=== PATIENT | female | born 1990 | race Caucasian/White ===

== ENCOUNTER 2020-08-06 02:33 | Inpatient (IN) | payer BC, SELFPAY ==
[2020-08-06] VITALS (15 sets, daily range): BP systolic 135–184; BP diastolic 78–110; PULSE 20–90; RESP 12–88; TEMP 36.2–37.1; O2SAT 93–99; BMI 44.2
[2020-08-06] MEDS: 0.9 % Sodium Chloride 1,000 ML 1000 ML IV (03:38)
[2020-08-06 03:39] LABS: Basophils Absolute Auto 0.1 X10*3/uL (0.0-0.2); Basophils Percent Auto 0.5 % (0-2); Eosinophils Absolute Auto 0.1 X10*3/uL (0.0-0.4); Eosinophils Percent Auto 0.9 % (0-4); Hematocrit 42.3 % (37-47); Imm Gran Pct Auto 1.4 % (0.0-0.4); MANUAL DIFF FLAG NO; Mean Corpuscular HGB Conc 33.1 g/dl (31.0-35.0); Mean Corpuscular Hemoglobin 28.3 pg (27.0-33.0); Mean Corpuscular Volume 85.6 fL (80-98); Mean Platelet Volume 9.6 fL (9.4-12.3); Monocytes Percent Auto 7.2 % (2-11); Neutrophils Absolute Auto 9.9 X10*3/uL (2.0-8.3); Platelet Count 362 X10*3/uL (160-400); Red Blood Count 4.94 X10*6/uL (4.20-5.50); Red Cell Distribution Width 13.1 % (11.0-16.0); White Blood Count 14.4 X10*3/uL (4.8-10.8)
[2020-08-06] MEDS: Ketorolac Tromethamine 15 MG/ML VIAL IVPUSH (03:41)
[2020-08-06] MEDS: ondansetron HCL 4 MG/2 ML VIAL IVPUSH ×2 (03:41→13:00)
[2020-08-06 04:18] LABS: Alanine Aminotransferase 101 U/L (0-31); Albumin Level 4.5 g/dL (3.5-5.0); Alkaline Phosphatase 109 U/L (39-117); Anion Gap 18 (12-20); Aspartate Amino Transferase 90 U/L (5-31); Bilirubin Total 0.4 mg/dL (0.0-1.0); Blood Urea Nitrogen 16 mg/dL (9-16); Carbon Dioxide 24 mmol/L (22-29); Chloride 101 mmol/L (96-108); Creatinine Clr Calc Pharmacy 106.3; Estimated Glomerular Filt Rate > 60; Glucose Random 186 mg/dL (60-115); Lipase 33 U/L (8-78); Potassium 3.9 mmol/l (3.3-5.1); Sodium 139 mmol/L (135-145); Total Protein 7.5 g/dL (6.5-8.0)
--- NOTE | 2020-08-06 04:26 | ED.FEMALEGU ---
HPI - Female Genitourinary General Chief complaint: General Medical Stated complaint: Flank pain/Vomiting Time Seen by Provider: 08/06/20 03:07 Source: patient Mode of arrival: ambulatory Limitations: no limitations History of Present Illness HPI Narrative: This is a 29-year-old female with history of renal stones most recently in March she had to have a left nephrostomy tube and states that they typically do not pass. This episode began yesterday when she was experiencing which she thought was stomach discomfort and then began forming into a right flank pain that sharp and radiating in the anterior distribution across the abdomen without fevers or chills but significant and recurrent episodes of nausea and nonbloody / nonbilious vomiting. In addition, patient is also experiencing some diarrhea but denies any urinary pain/ burning / frequency. Related Data Allergies Allergy/AdvReac Type Severity Reaction Status Date / Time oxycodone AdvReac Headache Verified 08/06/20 03:27 Review of Systems Review of Systems: Pertinent positives and negatives as stated in HPI 10 point review systems is otherwise negative. PMFSH Past Medical History Source: nursing notes reviewed Social History Social History Alcohol intake: never Smoking Status: Never smoker Advance Directives: No Advance Directives Information Provided: No Physical Exam Vital Signs: Vital Signs: Last Vital Signs Temp 98.6 F 08/06/20 06:00 Pulse 20 L 08/06/20 06:22 Resp 16 08/06/20 07:13 BP 180/110 H 08/06/20 06:22 Pulse Ox 93 08/06/20 06:22 Body Mass Index 44.2 VITAL SIGNS: Reviewed. GENERAL: Well developed, well nourished, in no acute distress. HEAD: Normocephalic/atraumatic, EYES: PERRLA, EOMI intact without pain, no nystagmus/pallor/icterus noted EARS: Ext canals without abnormality, TMs non-bulging and non-erythematous NOSE: Nares patent bilateral OROPHARYNX: no oral lesions noted, posterior pharynx clear and non-erythematous without noted tonsillar enlargement/erythema/exudates NECK: Supple, no adenopathy LUNGS: Normal breath sounds. No adventitious sounds or accessory muscle use. SpO2<93> CARDIOVASCULAR: Regular rate and rhythm without noted murmurs, no JVD or lower extremity edema. ABDOMEN: Soft, non-tender, non-distended with bowel sounds. No rigidity. No guarding. No palpable masses or hernias noted MUSCULOSKELETAL: No tenderness, deformities, or effusions noted on gross inspection. EXTREMITIES: No cyanosis, clubbing or edema. SKIN: Inspection of the skin reveals no rashes, ulcerations, jaundice, pallor, or petechiae. NEUROLOGIC: Alert and oriented x 4. Strength and sensation to light touch were grossly intact x 4. Course Course Course Narrative: This is a 29-year-old female with history and clinical presentation consistent with likely recurrent renal colic, but possibility pyelonephritis and less likely pneumonia and patient is status post cholecystectomy. Review of all investigation shows a significant leukocytosis and CT findings of obstructive 10 mm stone in the right distal ureter as well as a 15 mm stone in the left pelvic ureter. No evidence of worsening renal function, of note there is reduced nephrograms on the right. Antibiotics were provided as well as additional pain medication. All results and findings were discussed with the patient at bedside and she is aware that she will be going to the OR with Dr. Gallagher this morning. Reevaluation(s) Reevaluation #1: I discussed this case with Urology, Dr Gallagher, who will be taking the patient to the OR. Time: 05:58 [facility] - Female Genitourinary Lab Data Result diagrams: 08/06/20 03:35 08/06/20 03:35 Labs: Lab Results 08/06/20 08/06/20 08/06/20 Range/Units 03:35 03:35 04:23 WBC 14.4 H (4.8-10.8) X10*3/uL RBC 4.94 (4.20-5.50) X10*6/uL Hgb 14.0 (12.0-16.0) g/dl Hct 42.3 (37-47) % MCV 85.6 (80-98) fL MCH 28.3 (27.0-33.0) pg MCHC 33.1 (31.0-35.0) g/dl RDW 13.1 (11.0-16.0) % Plt Count 362 (160-400) X10*3/uL MPV 9.6 (9.4-12.3) fL Immature Gran % (Auto) 1.4 H (0.0-0.4) % Neut % (Auto) 69.0 (45-73) % Lymph % (Auto) 21.0 (20-40) % [place] % (Auto) 7.2 (2-11) % Eos % (Auto) 0.9 (0-4) % Baso % (Auto) 0.5 (0-2) % Lymph # (Auto) 3.0 (1.2-4.9) X10*3/uL [place] # (Auto) 1.0 (0.1-1.2) X10*3/uL Eos # (Auto) 0.1 (0.0-0.4) X10*3/uL Baso # (Auto) 0.1 (0.0-0.2) X10*3/uL Abs Immat Gran (auto) 0.20 H (0.00-0.03) X10*3/uL Absolute Neuts (auto) 9.9 H (2.0-8.3) X10*3/uL Absolute Nucleated RBC 0.000 (0.0-0.012) X10*3/uL Nucleated RBC % (auto) 0.0 (0.0-0.2) /100WBC Sodium 139 (135-145) mmol/L Potassium 3.9 (3.3-5.1) mmol/l Chloride 101 (96-108) mmol/L Carbon Dioxide 24 (22-29) mmol/L Anion Gap 18 (12-20) BUN 16 (9-16) mg/dL Creatinine 0.93 (0.5-1.4) mg/dL Estim Creat Clear Calc 106.3 Estimated GFR > 60 Random Glucose 186 H (60-115) mg/dL Calcium 9.0 (8.4-10.2) mg/dL Total Bilirubin 0.4 (0.0-1.0) mg/dL AST 90 H (5-31) U/L ALT 101 H (0-31) U/L Alkaline Phosphatase 109 (39-117) U/L Total Protein 7.5 (6.5-8.0) g/dL Albumin 4.5 (3.5-5.0) g/dL Lipase 33 (8-78) U/L Beta HCG, Quant < 2 mIU/mL Urine Color Urine Appearance Urine pH (5.0-8.0) Ur Specific [place] (1.005-1.025) Urine Protein (NEG-TRACE) MG/DL Urine Glucose (UA) (NEG) MG/DL Urine Ketones (NEG) MG/DL Urine Blood (NEG) Urine Nitrite (NEG) Ur Leukocyte Esterase (NEG) Urine RBC (0) /HPF Urine WBC (0-4) /HPF Ur Squamous Epith Cells /LPF Urine Bacteria /LPF Hyaline Casts /LPF Urine Test (NEGATIVE) Urine Opiates Screen Not Detected (Not Detect) Ur Barbiturates Screen Not Detected (Not Detect) Ur Phencyclidine Scrn Not Detected (Not Detect) Ur Amphetamines Screen Not Detected (Not Detect) U Benzodiazepines Scrn Not Detected (Not Detect) Urine Cocaine Screen Not Detected (Not Detect) U Marijuana (THC) Screen Not Detected (Not Detect) 08/06/20 Range/Units 04:24 WBC (4.8-10.8) X10*3/uL RBC (4.20-5.50) X10*6/uL Hgb (12.0-16.0) g/dl Hct (37-47) % MCV (80-98) fL MCH (27.0-33.0) pg MCHC (31.0-35.0) g/dl RDW (11.0-16.0) % Plt Count (160-400) X10*3/uL MPV (9.4-12.3) fL Immature Gran % (Auto) (0.0-0.4) % Neut % (Auto) (45-73) % Lymph % (Auto) (20-40) % [place] % (Auto) (2-11) % Eos % (Auto) (0-4) % Baso % (Auto) (0-2) % Lymph # (Auto) (1.2-4.9) X10*3/uL [place] # (Auto) (0.1-1.2) X10*3/uL Eos # (Auto) (0.0-0.4) X10*3/uL Baso # (Auto) (0.0-0.2) X10*3/uL Abs Immat Gran (auto) (0.00-0.03) X10*3/uL Absolute Neuts (auto) (2.0-8.3) X10*3/uL Absolute Nucleated RBC (0.0-0.012) X10*3/uL Nucleated RBC % (auto) (0.0-0.2) /100WBC Sodium (135-145) mmol/L Potassium (3.3-5.1) mmol/l Chloride (96-108) mmol/L Carbon Dioxide (22-29) mmol/L Anion Gap (12-20) BUN (9-16) mg/dL Creatinine (0.5-1.4) mg/dL Estim Creat Clear Calc Estimated GFR Random Glucose (60-115) mg/dL Calcium (8.4-10.2) mg/dL Total Bilirubin (0.0-1.0) mg/dL AST (5-31) U/L ALT (0-31) U/L Alkaline Phosphatase (39-117) U/L Total Protein (6.5-8.0) g/dL Albumin (3.5-5.0) g/dL Lipase (8-78) U/L Beta HCG, Quant mIU/mL Urine Color YELLOW Urine Appearance HAZY Urine pH 6.0 (5.0-8.0) Ur Specific [place] 1.025 (1.005-1.025) Urine Protein 1+ H (NEG-TRACE) MG/DL Urine Glucose (UA) NEG (NEG) MG/DL Urine Ketones 15 (NEG) MG/DL Urine Blood 2+ H (NEG) Urine Nitrite NEG (NEG) Ur Leukocyte Esterase NEG (NEG) Urine RBC 76-150 H (0) /HPF Urine WBC 1-4 (0-4) /HPF Ur Squamous Epith Cells TRACE /LPF Urine Bacteria TRACE /LPF Hyaline Casts 0-2 /LPF Urine Test NEGATIVE (NEGATIVE) Urine Opiates Screen (Not Detect) Ur Barbiturates Screen (Not Detect) Ur Phencyclidine Scrn (Not Detect) Ur Amphetamines Screen (Not Detect) U Benzodiazepines Scrn (Not Detect) Urine Cocaine Screen (Not Detect) U Marijuana (THC) Screen (Not Detect)
[2020-08-06 04:44] LABS: UPreg QC Valid YES; Urine Pregnancy NEGATIVE (NEGATIVE)
[2020-08-06 04:45] LABS: Glucose Urine UA NEG (NEG); Leukocyte Esterase Urine NEG (NEG); Nitrite Urine NEG (NEG); Specific Gravity - Urine 1.025 (1.005-1.025); Urine Blood 2+ (NEG); Urine Ketones 15 MG/DL (NEG); Urine Protein 1+ MG/DL (NEG-TRACE)
[2020-08-06 04:47] LABS: HCG Quantitative < 2 mIU/mL
[2020-08-06 04:49] LABS: Appearance Urine HAZY; Color Urine YELLOW
--- NOTE | 2020-08-06 04:49 | CT_ITS ---
EXAMINATION: CT ABDOMEN AND PELVIS WITH CONTRAST CLINICAL INFORMATION: Right flank pain. COMPARISON: None. TECHNIQUE: Contiguous axial thin section helical images of the abdomen and pelvis were performed following the administration of 85 mL of intravenous Omnipaque 350. The data set was reformatted in the coronal and sagittal planes and reviewed on an independent workstation. DLP: 1001 mGy-cm. FINDINGS: There is mild dependent bibasilar atelectasis. The visualized lung bases are otherwise clear. The visualized portions of the heart are unremarkable. The liver is of normal size and mild diffuse decreased attenuation without focal lesions nor intrahepatic biliary ductal dilation. The patient is status post cholecystectomy. Surgical clips are present. The spleen, pancreas, adrenal glands are unremarkable. Both kidneys are of normal size and attenuation. There is moderate left pelviectasis. There is a 1.5 cm calculus within the left renal pelvis. Within the left lower pole, there is a 1.0 cm nonobstructive calculus. There are punctate nonobstructive calculi within the left interpole region. There is right grade 2-3 hydroureteronephrosis secondary to an approximately 10 mm distal right ureteral calculus. There is a delayed nephrogram present on the right. There is no abdominal free fluid. There is neither mesenteric nor retroperitoneal lymphadenopathy. Normal unopacified loops of small and large bowel are identified. There is no pelvic free fluid. The urinary bladder is unremarkable. There is neither pelvic nor inguinal lymphadenopathy. Bone windows: Neither sclerotic nor lytic bone lesions are identified. CT/CT abdomen pelvis w con IMPRESSION: Right grade 2-3 hydroureteronephrosis secondary to a 10 mm distal right ureteral calculus. There is a delayed right nephrogram. Moderate left pelviectasis with a 15 mm left renal pelvic calculus. Mild manifestations of hepatic steatosis. Automated exposure control (Care Dose) Adjustment of the mA and/or kv according to patient size (this includes techniques or standardized protocols for targeted exams where dose is matched to indication / reason for exam; i.e. extremities or head).
[2020-08-06 05:04] LABS: Amphetamine Screen Urine Not Detected (Not Detect); Barbiturates, Urine Not Detected (Not Detect); Benzodiazepines Screen Urine Not Detected (Not Detect); Cannabinoid Screen Urine Not Detected (Not Detect); Cocaine Screen Urine Not Detected (Not Detect); Opiate Screen Urine Not Detected (Not Detect); Phencyclidine Screen Urine Not Detected (Not Detect)
[2020-08-06] MEDS: iohexoL 350 MG/ML 100 ML INFUS..BTL 85 ML IV (05:18)
[2020-08-06 05:30] LABS: Bacteria Urine TRACE /LPF; Hyaline Casts Urine 0-2 /LPF; Squamous Epithelial Cell Urine TRACE /LPF
[2020-08-06] MEDS: Metoclopramide HCl 10 MG/2 ML VIAL IVPUSH (05:36)
[2020-08-06] MEDS: diphenhydrAMINE HCL 50 MG/ML VIAL 25 MG IVPUSH (05:36)
[2020-08-06] MEDS: fentaNYL citrate/PF 100 MCG/2 ML VIAL 25 MCG IVPUSH (05:38)
[2020-08-06] MEDS: cefTRIAXone sodium 2 GM in 0.9 % Sodium Chloride 50 ML IV (06:09)
[2020-08-06] MEDS: HYDROmorphone HCl 0.5 MG/0.5 ML SYRINGE IVPUSH (07:13)
--- NOTE | 2020-08-06 07:30 | PC.NURSE ---
Pt alert, oriented x 3. States she is experiencing 10/10 pain currently. aware. Pt medicated per NOV. PT waiting for arrival of Dr Joyner. Will continue to monitor.
--- NOTE | 2020-08-06 08:36 | PM.HPGS ---
History of Present Illness History of Present Illness Chief complaint: Flank pain/Vomiting Narrative: Karen Gomes is a 29 year old female - history of renal stones most recently in March she had to have a left nephrostomy tube and states that they typically do not pass. Right flank pain started 24 hours ago. Radiating across abdomen. Pain at 8 out of 10. Has been managed with medication in the emergency room. CT image with 8 mm stone a junction between mid and distal ureter. Mild hydroureteronephrosis. Creatinine is 0.8 at normal level. Multiple stones on left side 1.5 cm 1 cm. Tells me had been managed at [facility] but had been put for 6 month recall. No 24 hour urine done in the past. Stones have been present for last 3 years. Review of Systems Review of Systems: Yes all other systems are reviewed and are negative [facility] Social History Social History Alcohol intake: never Smoking Status: Never smoker Advance Directives: No Advance Directives Information Provided: No Meds Allergies Allergy/AdvReac Type Severity Reaction Status Date / Time oxycodone AdvReac Headache Verified 08/06/20 03:27 Physical Exam Vital Signs: Vital Signs: Last Vital Signs Temp 98.6 F 08/06/20 06:00 Pulse 20 L 08/06/20 06:22 Resp 18 08/06/20 08:00 BP 180/110 H 08/06/20 06:22 Pulse Ox 93 08/06/20 06:22 Body Mass Index 44.2 Const: General: cooperative, healthy appearing, comfortable and no acute distress Nutritional Appearance: average body habitus Orientation/consciousness: oriented to person, oriented to place and oriented to time Eyes: General: appearance normal, both eyes and all related structures Chest: Chest palpation & inspection: normal inspection of the chest Resp: Effort & Inspection: normal respiratory effort Cardio: Rate: regular rate GI: Inspection: Yes normal to inspection Skin: Hair: normal Neuro: General: oriented to person, oriented to place and oriented to time Extrem: General: Yes normal to inspection Results Results Labs: Short CBC 08/06/20 Range/Units 03:35 WBC 14.4 H (4.8-10.8) X10*3/uL Hgb 14.0 (12.0-16.0) g/dl Hct 42.3 (37-47) % Plt Count 362 (160-400) X10*3/uL BMP 08/06/20 03:35 Sodium 139 Potassium 3.9 Chloride 101 Carbon Dioxide 24 BUN 16 Creatinine 0.93 Calcium 9.0 Liver Function 08/06/20 Range/Units 03:35 Total Bilirubin 0.4 (0.0-1.0) mg/dL AST 90 H (5-31) U/L ALT 101 H (0-31) U/L Alkaline Phosphatase 109 (39-117) U/L Albumin 4.5 (3.5-5.0) g/dL Urine 08/06/20 Range/Units 04:24 Urine Color YELLOW Urine Appearance HAZY Urine pH 6.0 (5.0-8.0) Ur Specific [place] 1.025 (1.005-1.025) Urine Protein 1+ H (NEG-TRACE) MG/DL Urine Glucose (UA) NEG (NEG) MG/DL Urine Test NEGATIVE (NEGATIVE) Both kidneys are of normal size and attenuation. There is moderate left pelviectasis. There is a 1.5 cm calculus within the left renal pelvis. Within the left lower pole, there is a 1.0 cm nonobstructive calculus. There are punctate nonobstructive calculi within the left interpole region. There is right grade 2-3 hydroureteronephrosis secondary to an approximately 10 mm distal right ureteral calculus. There is a delayed nephrogram present on the right. Assessment and Plan (1) Ureteric stone: Status: Acute (2) Hydroureteronephrosis: Status: Acute (3) Flank pain: Status: Acute Distal right ureteric stone Discussed intervention Options of stent placement versus ureteroscopy laser lithotripsy. Will try in place stent today and she can return on Sunday for definitive therapy. Keep NPO
[2020-08-06] MEDS: Ketorolac Tromethamine 30 MG/ML VIAL IVPUSH ×3 (09:35→20:23)
[2020-08-06 11:09] LABS: SARS COV2 PCR INHOUSE NEGATIVE (Negative)
[2020-08-06] MEDS: HYDROmorphone HCl 1 MG/ML SYRINGE IVPUSH (12:48)
--- NOTE | 2020-08-06 12:52 | ECG_ITS ---
Test Reason : CP Blood Pressure : / mmHG Vent. Rate : 084 BPM Atrial Rate : 084 BPM P-R Int : 156 ms QRS Dur : 090 ms QT Int : 386 ms P-R-T Axes : 048 011 052 degrees QTc Int : 456 ms Normal sinus rhythm Moderate voltage criteria for LVH, may be normal variant Borderline ECG No previous ECGs available Referred By: Tamara Stein Electronically Signed By:JUSTIN CALDWELL MD
--- NOTE | 2020-08-06 12:52 | XR_ITS ---
EXAMINATION: CHEST 1 VIEW CLINICAL INFORMATION: Pain. COMPARISON: None. TECHNIQUE: An AP view of the chest is provided. FINDINGS: The cardiac silhouette is not enlarged. The mediastinal and hilar contours are unremarkable. There are neither pleural effusions nor pneumothoraces. There are no consolidations. The osseous structures are unremarkable. XR/XR chest 1V IMPRESSION: No evidence for acute disease.
[2020-08-06] MEDS: 0.9 % Sodium Chloride 1,000 ML 125 ML IVCONT ×3 (13:06→23:57)
--- NOTE | 2020-08-06 15:33 | P.CONAN_ITS ---
[facility] Social History Social History Household Members: Family Housing: House Do you presently have visiting nurse or other home services: No Alcohol intake: never Smoking Status: Never smoker Use of substances other than those prescribed or required for medical reasons: Yes Substance Use Type: Marijuana Substance Use Frequency: Occasionally Have you been hit, kicked, punched, or otherwise hurt by someone within the past year? If so, by whom?: No Do you feel safe in your current relationship?: Yes Is there a partner from a previous relationship who is making you feel unsafe now?: No Are you made to feel afraid or neglected: No Advance Directives: No Advance Directives Information Provided: No Do you have thoughts of harming others: None Do you have a plan to hurt others: No Plan Recently lost weight without trying: No Meds Allergies Allergy/AdvReac Type Severity Reaction Status Date / Time onion Allergy Hives Verified 08/06/20 14:28 oxycodone AdvReac Headache Verified 08/06/20 03:27 Home Medications Medication Instructions Recorded Confirmed Type acetaminophen 650 mg PO Q6H PRN 08/06/20 08/06/20 History docusate sodium 1 cap PO BID 08/06/20 08/06/20 History tamsulosin 0.4 mg PO BEDTIME 08/06/20 08/06/20 History Exam Exam Date and Time: August 06, 2020 1533 Height,Weight and Vital Signs: Height 5 ft 3 in Weight 113.398 kg Last Vital Signs Temp 98.6 F 08/06/20 06:00 Pulse 20 L 08/06/20 06:22 Resp 16 08/06/20 10:00 BP 180/110 H 08/06/20 06:22 Pulse Ox 93 08/06/20 06:22 Pertinent Lab Results Pertinent Lab Results: Laboratory Tests 08/06/20 08/06/20 08/06/20 03:35 03:35 04:23 WBC 14.4 H RBC 4.94 Hgb 14.0 Hct 42.3 MCV 85.6 MCH 28.3 MCHC 33.1 RDW 13.1 Plt Count 362 MPV 9.6 Immature Gran % (Auto) 1.4 H Neut % (Auto) 69.0 Lymph % (Auto) 21.0 [place] % (Auto) 7.2 Eos % (Auto) 0.9 Baso % (Auto) 0.5 Lymph # (Auto) 3.0 [place] # (Auto) 1.0 Eos # (Auto) 0.1 Baso # (Auto) 0.1 Abs Immat Gran (auto) 0.20 H Absolute Neuts (auto) 9.9 H Absolute Nucleated RBC 0.000 Nucleated RBC % (auto) 0.0 Sodium 139 Potassium 3.9 Chloride 101 Carbon Dioxide 24 Anion Gap 18 BUN 16 Creatinine 0.93 Estim Creat Clear Calc 106.3 Estimated GFR > 60 Random Glucose 186 H Calcium 9.0 Total Bilirubin 0.4 AST 90 H ALT 101 H Alkaline Phosphatase 109 Total Protein 7.5 Albumin 4.5 Lipase 33 Beta HCG, Quant < 2 Urine Color Urine Appearance Urine pH Ur Specific [place] Urine Protein Urine Glucose (UA) Urine Ketones Urine Blood Urine Nitrite Ur Leukocyte Esterase Urine RBC Urine WBC Ur Squamous Epith Cells Urine Bacteria Hyaline Casts Urine Test Urine Opiates Screen Not Detected Ur Barbiturates Screen Not Detected Ur Phencyclidine Scrn Not Detected Ur Amphetamines Screen Not Detected U Benzodiazepines Scrn Not Detected Urine Cocaine Screen Not Detected U Marijuana (THC) Screen Not Detected Coronavirus (PCR) 08/06/20 08/06/20 04:24 09:44 WBC RBC Hgb Hct MCV MCH MCHC RDW Plt Count MPV Immature Gran % (Auto) Neut % (Auto) Lymph % (Auto) [place] % (Auto) Eos % (Auto) Baso % (Auto) Lymph # (Auto) [place] # (Auto) Eos # (Auto) Baso # (Auto) Abs Immat Gran (auto) Absolute Neuts (auto) Absolute Nucleated RBC Nucleated RBC % (auto) Sodium Potassium Chloride Carbon Dioxide Anion Gap BUN Creatinine Estim Creat Clear Calc Estimated GFR Random Glucose Calcium Total Bilirubin AST ALT Alkaline Phosphatase Total Protein Albumin Lipase Beta HCG, Quant Urine Color YELLOW Urine Appearance HAZY Urine pH 6.0 Ur Specific [place] 1.025 Urine Protein 1+ H Urine Glucose (UA) NEG Urine Ketones 15 Urine Blood 2+ H Urine Nitrite NEG Ur Leukocyte Esterase NEG Urine RBC 76-150 H Urine WBC 1-4 Ur Squamous Epith Cells TRACE Urine Bacteria TRACE Hyaline Casts 0-2 Urine Test NEGATIVE Urine Opiates Screen Ur Barbiturates Screen Ur Phencyclidine Scrn Ur Amphetamines Screen U Benzodiazepines Scrn Urine Cocaine Screen U Marijuana (THC) Screen Coronavirus (PCR) NEGATIVE Airway Mallampati Class: II TM Dist: >3cm Neck ROM: Full Heart: RRR Assessment and Plan Assessment Anesthesia Assessment: Anesthesia Plan Discussed Final Anesthetic Review NPO: Yes ASA Class: III Final Preanesthetic Review: Consent Obtained/Reviewed Anesthetic Plan Anesthetic Plan: GA Disposition: Standard PACU
--- NOTE | 2020-08-06 16:04 | MHC.SHP ---
Pre-Procedural Eval Section A The patient is an INPATIENT: Yes Changes since office visit: No Cold of Flu in the past 2 weeks, No New Medical Problems, No Changes in Medication and No Patient answered all questions The History & Physical has been completed within 30 days and I have reviewed it.: Yes Section B Chief Complaint: Nephrolithiasis Allergies: Allergies Allergy/AdvReac Type Severity Reaction Status Date / Time onion Allergy Hives Verified 08/06/20 14:28 oxycodone AdvReac Headache Verified 08/06/20 03:27 Plan Patient has been examined and remains a candidate for the planned procedure
--- NOTE | 2020-08-06 16:31 | PM.OP ---
Brief Operative Note Date of procedure: 08/06/20 Pre-op diagnosis: distal right ureteric stone Post-op diagnosis: same Procedure: - cysto - right retrograde - right stent placemengt Implants: 6Fr x22 JJ Surgeon: Сергей aGllagher MD Anesthesia: MAC Estimated blood loss (mL): 0 Pathology: none sent Condition: stable Disposition: floor
--- NOTE | 2020-08-06 16:32 | FL_ITS ---
EXAMINATION: XR FLUOROSCOPY WITH IMAGES CLINICAL INFORMATION: Right ureteral stone COMPARISON: None. TECHNIQUE: Fluoroscopy performed by Dr. Сергей Gallagher. Fluoroscopy time: 54 seconds Dose: 32.8 mGy Images: 2 FINDINGS: A ureteral stent is present with its proximal end in the renal pelvis and distal end in the bladder FL/FL guidance in OR IMPRESSION: Fluoroscopy and spot films provided during ureteral stent placement.
--- NOTE | 2020-08-06 16:33 | P.OP_ITS ---
Operative Note Operative Note Narrative: PreOperative Diagnosis: distal right stone Post Operative Diagnosis: distal right stone Procedure: - cysto right retorgade - right sent placement Srgeon: Dr Сергей Gallagher Anesthesia: MAC Indications for procedure: right distal stone with mild hydronephrosis Procedure: After informed consent was verified patient was brought to the operating room placed in supine position. Anesthesia was administered per protocol. Patient was placed in modified dorsal lithotomy position and prepped and draped in sterile fashion. Safety pause time-out was observed. Antibiotics administration been confirmed. Twenty-two Indian cystoscope inserted per urethra. Bladder was examined in its entirety. No abnormalities noted. Both ureteric orifices normal position. The right ureteric orifice was cannulated and retrograde examination was performed. Mild hydroureteronephrosis was shown. Distal right ureteric filling defect was seen. A Sensor guidewire was placed through the cystoscope alongside the stone up to the renal pelvis. A 6 Indian by 22 cm double-J stent was placed and good coil seen within the renal pelvis in the bladder She tolerated procedure well and was extubated and transferred in stable condition to the recovery area Drains: 6 Indian by 22 cm double-J stent
[2020-08-06] MEDS: Phenazopyridine HCL 100 MG TABLET PO (17:36)
[2020-08-06] MEDS: Docusate Sodium 100 MG CAPSULE PO (20:23)
[2020-08-06] MEDS: Tamsulosin HCL 0.4 MG CAPSULE PO (20:23)
[2020-08-06] MEDS: 0.9 % Sodium Chloride Flush 3 ML SYRINGE IVFLUSH (20:28)
[2020-08-07] VITALS: BP 152/84; PULSE 72; RESP 17; TEMP 37; O2SAT 94
[2020-08-07 04:00] VITALS: BP 131/68; PULSE 78; RESP 18; TEMP 36.2; O2SAT 93
[2020-08-07 07:35] VITALS: BP 135/77; PULSE 66; RESP 17; TEMP 36.9; O2SAT 99
[2020-08-07] MEDS: Docusate Sodium 100 MG CAPSULE PO (08:03)
[2020-08-07] MEDS: traMADoL HCL 50 MG TABLET PO (08:03)
[2020-08-07 08:04] LABS: SARS COV2 IgG Negative (Negative)
--- NOTE | 2020-08-07 10:02 | PM.DS ---
DS: Providers Provider Date of Service: 08/07/20 Date of discharge: 08/09/20 Primary care physician: Mickie Dorman MD Admitting clinician: Сергей Gallagher DS: Diagnosis Discharge Diagnosis (1) Kidney stones: Status: Acute DS: Summary Hospital Course Hospital Course: Hospital course with kidney stone management Time spent discussing smoking cessation with patient: 3 to 10 minutes Status at Discharge Functional status at discharge: independent ambulation Time Spent with Patient Time attestation: Total time spent providing and/or coordinating discharge services: Discharge coordination time: Less than 30 minutes Quality: Stroke Does the patient have a stroke diagnosis?: No Physical Exam Vital Signs: Vital Signs: Last Vital Signs Temp 97.7 F 08/09/20 14:04 Pulse 61 08/09/20 15:01 Resp 20 08/09/20 15:01 BP 171/89 H 08/09/20 15:01 Pulse Ox 96 08/09/20 15:19 Body Mass Index 44.2 DS: Data Data Completed and Pending Completed studies during hospitalization [Text1]: Pending at discharge 08/09/20 13:50 Surgical [PTH] Urgent Procedures Dilation of Right Ureter with Intraluminal Device, Via Natural or Artificial Opening Endoscopic (08/06/20) Fluoroscopy of Right Kidney, Ureter and Bladder (08/06/20) Discharge Plan Discharge Anticipated Discharge Date/Time: 08/06/20 22:08 Patient Disposition: Home, Self-Care Discharge Diagnosis: nephrolithiasis Referrals: Сергей Gallagher MD [Physician] - 1 Week Mickie Dorman MD [Primary Care Provider] - Discharge Medications: New tramadol 50 mg Tablet 50 mg PO Q6H PRN (Reason: Pain, Moderate (Pain Scale 4-6) Qty: 14 0RF tamsulosin 0.4 mg Capsule 0.4 mg PO BEDTIME Qty: 14 0RF phenazopyridine [Pyridium] 100 mg tablet 100 mg PO TID PRN (Reason: spasm) 4 Days Qty: 12 0RF Continued hydromorphone [Dilaudid] 4 mg tablet 4 mg PO Q6H PRN (Reason: pain) Qty: 10 0RF tamsulosin 0.4 mg capsule 0.4 mg PO BEDTIME Qty: 14 0RF acetaminophen 325 mg tablet 650 mg PO Q6H PRN (Reason: Pain) docusate sodium 100 mg capsule 1 cap PO BID trimethoprim 100 mg tablet 100 mg PO DAILY 10 Days Qty: 10 0RF hydrocodone-acetaminophen 5-300 mg tablet 1 tab PO Q6H 7 Days Qty: 14 0RF No Action pyridoxine (vitamin B6) 100 mg tablet 100 mg PO DAILY 90 Days Qty: 90 1RF fluconazole 150 mg tablet 150 mg PO Q OTHER DAY 3 Days Qty: 2 0RF Rx Instructions: administer on day 1 of therapy amoxicillin-pot clavulanate [Augmentin] 875-125 mg tablet 1 tab PO BID Qty: 20 0RF prednisone 20 mg tablet 20 mg PO .COMPLEX Qty: 18 0RF Rx Instructions: 20 mg PO 3 p.o. daily for 3 days followed by 2 p.o. daily for 3 days followed by 1 p.o. daily for 3 days; lisinopril 5 mg tablet 5 mg PO DAILY Discharge Orders: Discharge Order (Routine); Ordered 08/06/20 Ordered By: Сергей Gallagher Diet: Advance to usual diet Activity on Discharge: As tolerated Visit Report Forms: Patient Portal Discharge page Care Plan Goals: [facility] Concerns: stones Plan of Treatment: next week intervention Assessment: stable Patient Instructions: Kidney Stones (DC) Discharge Date/Time: 08/07/20 14:00
[2020-08-07 11:17] VITALS: BP 158/69; PULSE 83; RESP 18; TEMP 36.4; O2SAT 95
--- NOTE | 2020-08-07 17:54 | HO.POSTANES ---
Post Anesthesia Evaluation Post Anesthesia Evaluation Vital Signs: Vital Signs Temp Pulse Resp BP Pulse Ox 08/07/20 11:17 97.6 F 83 18 158/69 H 95 08/07/20 07:35 98.4 F 66 17 135/77 99 Anesthesia: General LMA Mental Status: Awake Pain Control: Satisfactory Nausea/Vomiting: None Hydration: Adequate Anesthesia-Related Issues: No Anes. Related Issues
== END 2020-08-07 14:00 | disposition home or self-care (01) | DRG 465 ==
LOC: HO.ED 04:31 → HO.SSS 08:19 → HO.S3 08:53
PROVIDERS: Emergency Medicine; Admitting Provider Urology; Emergency Provider Student in an Organized Health Care Education/Training Program; PCP Internal Medicine; Visit Provider Urology
PROC: 0T768DZ Dilation of Right Ureter with Intraluminal Device, Via Natural or Artificial Opening Endoscopic (ICD-10-PCS; principal; 2020-08-06 16:00)
DX: N13.2 Hydronephrosis with renal and ureteral calculous obstruction (principal); Z20.828 Contact with and (suspected) exposure to other viral communicable diseases; Z87.442 Personal history of urinary calculi; Z88.6 Allergy status to analgesic agent
CPT/HCPCS: 36415; 71045; 74177; 80053; 80307; 81001; 81025; 83690; 84702; 85025; 86769; 93005; 96361; 96365; 96375; 96376; 99285; C1758; C1769; C2617; J0696; J1100; J1170; J1200; J1885; J2250; J2405; J2765; J3010; Q9967; U0003

== ENCOUNTER → 2020-08-06 08:16 | Outpatient (BNV) | payer BC, SELFPAY | PROVIDERS: Emergency Provider Student in an Organized Health Care Education/Training Program; PCP Internal Medicine; Visit Provider Urology | DX: N20.0 Calculus of kidney (principal) | CPT/HCPCS: 52332; 74420; 99214; 99499 ==

== ENCOUNTER 2020-08-09 09:06 | Day surgery (SDC) | payer BC, SELFPAY ==
[2020-08-09] VITALS (9 sets, daily range): BP systolic 152–176; BP diastolic 87–109; PULSE 61–84; RESP 16–20; TEMP 36.5–36.6; O2SAT 90–98; BMI 44.2
[2020-08-09 09:38] LABS: UPreg QC Valid YES
[2020-08-09 09:39] LABS: Urine Pregnancy NEGATIVE (NEGATIVE)
[2020-08-09] MEDS: levoFLOXacin 500 MG TABLET PO (09:54)
--- NOTE | 2020-08-09 10:17 | P.CONAN_ITS ---
FORMERLY [facility] Past Medical History Medical History Asthma H/O cholecystitis Hx of migraines Kidney stones Surgical History Surgical History History of cholecystectomy Social History Social History Household Members: Family Housing: House Alcohol intake: never Smoking Status: Never smoker Use of substances other than those prescribed or required for medical reasons: No Substance Use Type: Marijuana Have you been hit, kicked, punched, or otherwise hurt by someone within the past year? If so, by whom?: No Advance Directives: No Advance Directives Information Provided: No Advance Directives on File: No Meds Allergies Allergy/AdvReac Type Severity Reaction Status Date / Time onion Allergy Hives Verified 08/06/20 14:28 oxycodone AdvReac Headache Verified 08/06/20 03:27 Home Medications Medication Instructions Recorded Confirmed Type acetaminophen 650 mg PO Q6H PRN 08/06/20 08/06/20 History docusate sodium 1 cap PO BID 08/06/20 08/06/20 History Exam Exam Date and Time: August 09, 2020 1017 Height,Weight and Vital Signs: Height 5 ft 3 in Weight 113.398 kg Last Vital Signs Temp 98 F 08/09/20 09:42 Pulse 84 08/09/20 09:42 Resp 18 08/09/20 09:42 BP 152/87 H 08/09/20 09:42 Pulse Ox 98 08/09/20 09:42 Pertinent Lab Results Pertinent Lab Results: Laboratory Tests 08/09/20 09:25 Urine Test NEGATIVE Airway Mallampati Class: II TM Dist: >3cm Neck ROM: Full Assessment and Plan Assessment Anesthesia Assessment: Anesthesia Plan Discussed and Chart Reviewed Final Anesthetic Review NPO: Yes ASA Class: II Final Preanesthetic Review: No Changes in Pt Med Stat, Meds/Allgs Chart Reviewed, Consent Obtained/Reviewed and Anes Risks/Benef Reviewed Patient Risk: Low Procedure Risk: Low Assessment/Block/Sedation in SS: Assess/Block/Sedation-SS Anesthetic Plan Anesthetic Plan: GA Disposition: Standard PACU
--- NOTE | 2020-08-09 11:36 | HO.ANESPROP2 ---
Documented by User: Flavio Camara 08/09/20 12:22 [facility] [place] Past Medical History Medical History Asthma H/O cholecystitis Hx of migraines Kidney stones Surgical History Surgical History History of cholecystectomy Social History Social History Household Members: Family Housing: House Alcohol intake: never Smoking Status: Never smoker Use of substances other than those prescribed or required for medical reasons: No Substance Use Type: Marijuana Have you been hit, kicked, punched, or otherwise hurt by someone within the past year? If so, by whom?: No Advance Directives: No Advance Directives Information Provided: No Advance Directives on File: No Meds Allergies Allergy/AdvReac Type Severity Reaction Status Date / Time onion Allergy Hives Verified 08/06/20 14:28 oxycodone AdvReac Headache Verified 08/06/20 03:27 Home Medications Medication Instructions Recorded Confirmed Type acetaminophen 650 mg PO Q6H PRN 08/06/20 08/06/20 History docusate sodium 1 cap PO BID 08/06/20 08/06/20 History Exam Airway Mallampati Class: I TM Dist: <=3cm Neck ROM: Full Loose/Missing/Broken Teeth: No Assessment and Plan Assessment Anesthesia Assessment: Anesthesia Plan Discussed and Chart Reviewed Final Anesthetic Review NPO: Yes ASA Class: II and III Final Preanesthetic Review: No Changes in Pt Med Stat, Meds/Allgs Chart Reviewed, Consent Obtained/Reviewed and Anes Risks/Benef Reviewed Patient Risk: Intermediate Procedure Risk: Intermediate Anesthetic Plan Anesthetic Plan: GA and Agree w/ Assess. and Plan Disposition: Standard PACU Documented by User: Erika Rivero 08/09/20 13:36 [facility] [place] Past Medical History Medical History Asthma H/O cholecystitis Hx of migraines Kidney stones Surgical History Surgical History History of cholecystectomy Social History Social History Household Members: Family Housing: House Alcohol intake: never Smoking Status: Never smoker Use of substances other than those prescribed or required for medical reasons: No Substance Use Type: Marijuana Have you been hit, kicked, punched, or otherwise hurt by someone within the past year? If so, by whom?: No Advance Directives: No Advance Directives Information Provided: No Advance Directives on File: No Meds Allergies Allergy/AdvReac Type Severity Reaction Status Date / Time onion Allergy Hives Verified 08/06/20 14:28 oxycodone AdvReac Headache Verified 08/06/20 03:27 Home Medications Medication Instructions Recorded Confirmed Type acetaminophen 650 mg PO Q6H PRN 08/06/20 08/06/20 History docusate sodium 1 cap PO BID 08/06/20 08/06/20 History Exam Exam Date and Time: August 09, 2020 1136 Height,Weight and Vital Signs: Height 5 ft 3 in Weight 113.398 kg Last Vital Signs Temp 98 F 08/09/20 09:42 Pulse 84 08/09/20 09:42 Resp 18 08/09/20 09:42 BP 152/87 H 08/09/20 09:42 Pulse Ox 98 08/09/20 09:42 Pertinent Lab Results Pertinent Lab Results: Laboratory Tests 08/09/20 09:25 Urine Test NEGATIVE
--- NOTE | 2020-08-09 12:01 | FL_ITS ---
EXAMINATION: XR FLUOROSCOPY WITH IMAGES CLINICAL INFORMATION: Stent placement COMPARISON: Previous exam 08/06/2020 TECHNIQUE: Fluoroscopy performed by Dr. Сергей Gallagher. Fluoroscopy time: 47 seconds Dose: 23 mgy Images: 3 FINDINGS: Initial image demonstrates a wire or catheter projecting over the right renal pelvis and proximal ureter. Second image demonstrates opacification of the left renal collecting system. The third image demonstrates the distal end of bilateral internal ureteral stents. FL/FL guidance in OR IMPRESSION: Fluoroscopic guidance for stent placement.
--- NOTE | 2020-08-09 12:11 | MHC.SHP ---
Pre-Procedural Eval Section B Chief Complaint: nephrolithiasis Details of Present Illness: bilateral renal stones. Stent in place on right side Relevant Family History (Specify if Yes): No Relevant Social History: None Present Medications: see Short Stay Collaborative assessment Medical History: Significant History History of Previous Operations: Relevant previous surgery/procedure and date(s) Allergies: Allergies Allergy/AdvReac Type Severity Reaction Status Date / Time onion Allergy Hives Verified 08/06/20 14:28 oxycodone AdvReac Headache Verified 08/06/20 03:27 Review of Systems Sugical H&P ROS: Negative: Constitution, Cardiovascular, Respiratory, Neurological, Psychiatric, Hem-Onc, Allergic/Immunologic, Gastrointestinal, Genitourinary, Musculoskeletal, Integumentary, Endocrine and Eyes/Ears/Nose/Throat Exam Surgical H&P Exam: Normal: HEENT, Normal: Heart, Normal: Lungs, Normal: Extremities, Normal: Abdomen, Normal: Skin and Normal: Neurological Plan Diagnosis/Plan: Unchanged Patient has been examined and remains a candidate for the planned procedure
--- NOTE | 2020-08-09 14:08 | PM.OP ---
Brief Operative Note Date of procedure: 08/09/20 Pre-op diagnosis: Bilateral renal stones Post-op diagnosis: other ( right ureteric stone, left renal stones 2 x 1 cm stones) Procedure: 1. bilateral retrogrades 2. bilateral dilatation distal ureters under fluoroscopy 3. bilateral ureteroscopy with laser lithotripsy and stone basketing 4. bilateral stent placement 5. right stent removal Implants: bilateral 6 [place] by 22 cm stents Surgeon: Сергей Gallagher MD Anesthesia: GLMA Estimated blood loss (mL): 0 Pathology: other ( stones) Condition: stable Disposition: same day
--- NOTE | 2020-08-09 14:10 | W.PM.OPN ---
Operative Note Operative Note Narrative: PreOperative Diagnosis: bilateral renal nephrolithiasis Post Operative Diagnosis: right distal ureteric stone, left renal stones times to Procedure: 1. right stent removal 2. right retrograde 3. right dilatation distal ureteric orifice 4. right retrograde with laser lithotripsy stone basketing 5. right stent placement 6. left retrograde 7. left dilatation distal ureteric orifice under fluoroscopy 8. left ureteroscopy with laser lithotripsy and stone basketing. Two different stone locations please 9. left stent placement Surgeon: Dr Сергей Gallagher Anesthesia: General Indications for procedure: 29-year-old female who presented last week with distal right ureteric stone. Stent was placed. She is here for definitive procedure. Understands this may be a staged procedure in subsequent procedures may be necessary depending on fragmentation and remnant stone fragments. Procedure: After informed consent was verified patient was brought to the operating placed in supine position. Anesthesia was administered per protocol. Patient was placed in modified dorsal lithotomy position and prepped and draped in a sterile fashion. Safety pause time-out and side of surgery confirmed. Antibiotics confirmed. a 21 [place] cystoscope was inserted per urethra. The bladder was emptied. Both ureteric orifices normal position. The right ureteric orifice seen in a stent was seen. Stent was grasped and removed. A wire was placed. Open-ended catheter was placed. Retrograde examination was performed. The open-ended catheter was removed. The ureter was dilated with the internal portion of the ureteric access sheath. The ureteric access sheath was placed. A flexible ureteroscopic was placed. This stone was not seen in the kidney. The ureteral scope was then pulled back slowly in the stone was encountered in the distal 3rd of the ureter imbedded in the wall. It was knocked free. Was broken into multiple portions. These were then removed using a basket. Sensor guidewire was placed up to the level renal pelvis. A 6 [place] by 22 cm double-J catheter was then placed without difficulty. Good coil seen on fluoroscopy and direct visualization. Similar access was performed on the left side. On ureteroscopy on the left side we did see 2 big stones. These were broken to small pieces. They will also basketed. This took approximately 45 minutes. This is 50% longer than typical. There were 2 separate stones 1 in the lower pole and 1 in the upper pole. At the completion a Sensor guidewire was placed. A 2nd 6 [place] by 22 cm stent was placed out difficulty. She was extubated in operating room transferred in stable recovery to the recovery area. Pathology: Stones Drains: 6 [place] by 22 cm double-J ureteric stents
[2020-08-09] MEDS: Phenazopyridine HCL 100 MG TABLET PO (15:25)
--- NOTE | 2020-08-09 15:46 | HO.POSTANES ---
Post Anesthesia Evaluation Post Anesthesia Evaluation Vital Signs: Vital Signs Temp Pulse Resp BP Pulse Ox 08/09/20 15:19 97.7 F 96 08/09/20 15:01 61 20 171/89 H 92 08/09/20 14:35 64 20 162/94 H 92 08/09/20 14:20 78 20 176/99 H 98 08/09/20 14:14 78 18 176/109 H 98 08/09/20 14:09 76 18 175/105 H 98 08/09/20 14:04 97.7 F 82 16 175/107 H 90 L 08/09/20 09:42 98 F 84 18 152/87 H 98 08/09/20 09:31 98 F 84 18 98 Anesthesia: General LMA Mental Status: Awake Pain Control: Satisfactory Nausea/Vomiting: None Hydration: Adequate Anesthesia-Related Issues: No Anes. Related Issues
--- NOTE | 2021-08-01 10:02 | PM.DS ---
DS: Providers Provider Date of Service: 08/07/20 Date of discharge: 08/09/20 Primary care physician: Mickie Dorman MD Admitting clinician: Сергей Gallagher DS: Diagnosis Discharge Diagnosis (1) Kidney stones: Status: Acute DS: Summary Hospital Course Hospital Course: Underwent ureteroscopy, lithotripsy stent placement Time spent discussing smoking cessation with patient: 3 to 10 minutes Status at Discharge Functional status at discharge: independent ambulation Time Spent with Patient Time attestation: Total time spent providing and/or coordinating discharge services: Discharge coordination time: Less than 30 minutes Quality: Stroke Does the patient have a stroke diagnosis?: No Physical Exam Vital Signs: Vital Signs: Last Vital Signs Temp 97.7 F 08/09/20 14:04 Pulse 61 08/09/20 15:01 Resp 20 08/09/20 15:01 BP 171/89 H 08/09/20 15:01 Pulse Ox 96 08/09/20 15:19 Body Mass Index 44.2 DS: Data Data Completed and Pending Completed studies during hospitalization [Text1]: Pending at discharge 08/09/20 13:50 Surgical [PTH] Urgent Procedures Dilation of Right Ureter with Intraluminal Device, Via Natural or Artificial Opening Endoscopic (08/06/20) Fluoroscopy of Right Kidney, Ureter and Bladder (08/06/20) Discharge Plan Discharge Patient Disposition: Home, Self-Care Referrals: Сергей Gallagher MD [Physician] - 1 Week (stent out) Mickie Dorman MD [Primary Care Provider] - Discharge Medications: New trimethoprim 100 mg tablet 100 mg PO DAILY 10 Days Qty: 10 RF: 0 hydrocodone-acetaminophen 5-300 mg tablet 1 tab PO Q6H 7 Days Qty: 14 RF: 0 Continued acetaminophen 325 mg tablet 650 mg PO Q6H PRN (Reason: Pain) RF: 0 docusate sodium 100 mg capsule 1 cap PO BID RF: 0 tramadol 50 mg Tablet 50 mg PO Q6H PRN (Reason: Pain, Moderate (Pain Scale 4-6) Qty: 14 RF: 0 No Action pyridoxine (vitamin B6) 100 mg tablet 100 mg PO DAILY 90 Days Qty: 90 RF: 1 hydromorphone [Dilaudid] 4 mg tablet 4 mg PO Q6H PRN (Reason: pain) Qty: 10 RF: 0 tamsulosin 0.4 mg capsule 0.4 mg PO BEDTIME Qty: 14 RF: 0 tamsulosin 0.4 mg Capsule 0.4 mg PO BEDTIME Qty: 14 RF: 0 phenazopyridine [Pyridium] 100 mg tablet 100 mg PO TID PRN (Reason: spasm) 4 Days Qty: 12 RF: 0 fluconazole 150 mg tablet 150 mg PO Q OTHER DAY 3 Days Qty: 2 RF: 0 amoxicillin-pot clavulanate [Augmentin] 875-125 mg tablet 1 tab PO BID Qty: 20 RF: 0 prednisone 20 mg tablet 20 mg PO .COMPLEX Qty: 18 RF: 0 lisinopril 5 mg tablet 5 mg PO DAILY RF: 0 Discharge Orders: Discharge Order (Routine); Ordered 08/09/20 Ordered By: Сергей Gallagher Patient Instructions: Ureteroscopy (DC) Discharge Date/Time: 08/09/20 15:48
--- NOTE | 2023-01-30 12:35 | PM.DS ---
DS: Providers Provider Date of Service: 08/06/20 Primary care physician: Mickie Dorman MD Admitting clinician: Сергей Gallagher DS: Diagnosis Discharge Diagnosis (1) Kidney stones: Status: Acute DS: Summary Hospital Course Hospital Course: Underwent ureteroscopy, lithotripsy stent placement Time Spent with Patient Time attestation: Total time managing care of this patient today ____ minutes. Discharge coordination time: Less than 30 minutes Quality: Safe Use of Opioids Does Pt have an Active Cancer Diagnosis on the Problem List?: No Quality: Stroke Does the patient have a stroke diagnosis?: No Physical Exam Vital Signs: Vital Signs: Last Vital Signs Temp 97.7 F 08/09/20 14:04 Pulse 61 08/09/20 15:01 Resp 20 08/09/20 15:01 BP 171/89 H 08/09/20 15:01 Pulse Ox 96 08/09/20 15:19 O2 Del Method Room Air 08/09/20 15:19 O2 Flow Rate 2 08/09/20 14:20 BMI result Body Mass Index 44.2 DS: Data Data Completed and Pending Completed studies during hospitalization [Text1]: Pending at discharge 08/09/20 13:50 Surgical [PTH] Urgent Procedures Dilation of Right Ureter with Intraluminal Device, Via Natural or Artificial Opening Endoscopic (08/06/20) Fluoroscopy of Right Kidney, Ureter and Bladder (08/06/20) Discharge Plan Discharge Patient Disposition: Home, Self-Care Referrals: Сергей Gallagher MD [Physician] - 1 Week (stent out) Mickie Dorman MD [Primary Care Provider] - Discharge Medications: New trimethoprim 100 mg tablet 100 mg PO DAILY 10 Days Qty: 10 0RF hydrocodone-acetaminophen 5-300 mg tablet 1 tab PO Q6H 7 Days Qty: 14 0RF Continued acetaminophen 325 mg tablet 650 mg PO Q6H PRN (Reason: Pain) docusate sodium 100 mg capsule 1 cap PO BID tramadol 50 mg Tablet 50 mg PO Q6H PRN (Reason: Pain, Moderate (Pain Scale 4-6) Qty: 14 0RF No Action pyridoxine (vitamin B6) 100 mg tablet 100 mg PO DAILY 90 Days Qty: 90 1RF hydromorphone [Dilaudid] 4 mg tablet 4 mg PO Q6H PRN (Reason: pain) Qty: 10 0RF tamsulosin 0.4 mg capsule 0.4 mg PO BEDTIME Qty: 14 0RF tamsulosin 0.4 mg Capsule 0.4 mg PO BEDTIME Qty: 14 0RF phenazopyridine [Pyridium] 100 mg tablet 100 mg PO TID PRN (Reason: spasm) 4 Days Qty: 12 0RF fluconazole 150 mg tablet 150 mg PO Q OTHER DAY 3 Days Qty: 2 0RF Rx Instructions: administer on day 1 of therapy amoxicillin-pot clavulanate [Augmentin] 875-125 mg tablet 1 tab PO BID Qty: 20 0RF prednisone 20 mg tablet 20 mg PO .COMPLEX Qty: 18 0RF Rx Instructions: 20 mg PO 3 p.o. daily for 3 days followed by 2 p.o. daily for 3 days followed by 1 p.o. daily for 3 days; lisinopril 5 mg tablet 5 mg PO DAILY Discharge Orders: Discharge Order (Routine); Ordered 08/09/20 Ordered By: Сергей Gallagher Diet: Advance to usual diet Activity on Discharge: As tolerated Patient Instructions: Ureteroscopy (DC) Discharge Date/Time: 08/09/20 15:48
== END 2020-08-09 15:48 | disposition home or self-care (01) ==
PROVIDERS: PCP Internal Medicine; Visit Provider Urology
PROC: (CPT 52356; principal; 2020-08-09 09:40)
DX: N20.1 Calculus of ureter (principal); N20.0 Calculus of kidney
CPT/HCPCS: 52356; 81025; 82365; 88300; C1758; C1769; C2617; J1100; J1885; J2250; J2405; J3010; Q9967

== ENCOUNTER 2020-08-16 13:34 | Outpatient (REF) | payer BC, SELFPAY ==
--- NOTE | 2020-08-16 13:40 | XR_ITS ---
EXAMINATION: XR ABDOMEN KUB CLINICAL INDICATION: Ureteral stone COMPARISON: Previous CT of the abdomen and pelvis 08/06/2020 TECHNIQUE: AP view of the abdomen. FINDINGS: There are new bilateral internal ureteral stents. No right-sided renal stone is seen. There are clustered small stones seen in the lower pole of the left kidney. No ureteral stone is seen. No bladder stone is seen. Bowel gas pattern is normal. There are surgical clips in the right upper quadrant suggestive of previous cholecystectomy. Bony structures are unremarkable. XR/XR KUB IMPRESSION: New bilateral internal ureteral stents in satisfactory position. No right-sided stone seen. Multiple small stones in the lower pole of the left kidney.
== END 2020-08-16 13:35 | disposition home or self-care (01) ==
LOC: HO.XRAY 13:34
PROVIDERS: PCP Internal Medicine; Visit Provider Urology
DX: N20.1 Calculus of ureter (principal)
CPT/HCPCS: 74018

== ENCOUNTER → 2020-08-20 08:46 | Outpatient (BNVA) | payer BC, SELFPAY | PROVIDERS: PCP Internal Medicine; Visit Provider Urology | DX: Z48.816 Encounter for surgical aftercare following surgery on the genitourinary system (principal); N20.0 Calculus of kidney | CPT/HCPCS: 52000; 52310; 81002 ==

== ENCOUNTER 2020-08-28 10:37 | Outpatient (REF) | payer BC, SELFPAY ==
[2020-09-03 19:07] LABS: URO-Brushite 24 Hr Urine 6.74 (<2.00); URO-Calcium 24 Hr Urine 506 mg/day (<250.0); URO-Citric Acid 24 Hr Urine 1412 mg/day (>320); URO-Creatinine 24 Hr Urine 1908 mg/day (600-1800); URO-Magnesium 24 Hr Urine 147 mg/day (>60.0); URO-Oxalate 24 Hr Urine 68 mg/day (<45); URO-Phosphorus 24 Hr Urine 1277 mg/day (<1100); URO-Potassium 24 Hr Urine 91 mEq/day (19-135); URO-Sodium 24 Hr Urine 260 mEq/day (<200); URO-Sodium Urate 24 Hr Urine 5.38 (<2.00); URO-Sulfate 24 Hr Urine 22 mmol/day (<30); URO-Total Volume 2.15 L/day (>2.00); URO-Uric Acid 24 Hr Urine 0.34 (<2.00); URO-Uric Acid 24 Hr Urine 1172 mg/day (<700); URO-pH 24 Hr Urine 6.9 (5.5-7.0)
== END 2020-08-28 10:38 | disposition home or self-care (01) ==
LOC: HO.LNP 10:37
PROVIDERS: Visit Provider Urology
DX: N20.0 Calculus of kidney (principal)
CPT/HCPCS: 82340; 82507; 82570; 83735; 83945; 83986; 84105; 84133; 84300; 84392; 84560

== ENCOUNTER 2020-09-15 06:17 | Day surgery (SDC) | payer BC, SELFPAY ==
[2020-09-09 10:35] VITALS: BMI 44.6
--- NOTE | 2020-09-14 08:52 | P.CONAN_ITS ---
Documented by User: Rafaela Velazquez 09/14/20 08:55 HPI - Anesthesia Eval Consult details Narrative: 29yo F for Lithotripsy ESW s/p cyst, stent 08/09/2020 with GA-LMA 4 PMFSH Past Medical History Medical History Asthma H/O cholecystitis Hx of migraines Kidney stones Surgical History Surgical History History of cholecystectomy Hx of cystoscopy Social History Social History Household Members: Family Housing: House Are you a primary rental boats caretaker to a significant other at home: No Do you presently have visiting nurse or other home services: No Alcohol intake: never Smoking Status: Never smoker Second Hand Smoke Exposure: No Substance Use Type: Marijuana Have you been hit, kicked, punched, or otherwise hurt by someone within the past year? If so, by whom?: No Advance Directives: No Advance Directives Information Provided: No Advance Directives on File: No Recently lost weight without trying: No Meds Allergies Allergy/AdvReac Type Severity Reaction Status Date / Time onion Allergy Hives Verified 09/09/20 10:34 oxycodone AdvReac Headache Verified 09/09/20 10:34 Home Medications Medication Instructions Recorded Confirmed Type acetaminophen 650 mg PO Q6H PRN 08/06/20 09/09/20 History docusate sodium 1 cap PO BID 08/06/20 09/09/20 History Exam Exam Date and Time: September 14, 2020 0852 Height,Weight and Vital Signs: Height 5 ft 3 in Weight 114.305 kg Pertinent Lab Results Pertinent Lab Results: Laboratory Tests 08/06/20 08/06/20 03:35 03:35 WBC 14.4 H Hgb 14.0 Hct 42.3 Plt Count 362 Sodium 139 Potassium 3.9 Chloride 101 Carbon Dioxide 24 BUN 16 Creatinine 0.93 Assessment and Plan Assessment Anesthesia Assessment: Chart Reviewed Documented by User: Eduardo Corbin 09/15/20 07:45 PMFSH Past Medical History Medical History Asthma H/O cholecystitis Hx of migraines Kidney stones Surgical History Surgical History History of cholecystectomy Hx of cystoscopy Social History Social History Household Members: Family Housing: House Are you a primary rental boats caretaker to a significant other at home: No Do you presently have visiting nurse or other home services: No Alcohol intake: never Smoking Status: Never smoker Second Hand Smoke Exposure: No Substance Use Type: Marijuana Have you been hit, kicked, punched, or otherwise hurt by someone within the past year? If so, by whom?: No Advance Directives: No Advance Directives Information Provided: No Advance Directives on File: No Recently lost weight without trying: No Meds Allergies Allergy/AdvReac Type Severity Reaction Status Date / Time onion Allergy Hives Verified 09/09/20 10:34 oxycodone AdvReac Headache Verified 09/09/20 10:34 Home Medications Medication Instructions Recorded Confirmed Type acetaminophen 650 mg PO Q6H PRN 08/06/20 09/09/20 History docusate sodium 1 cap PO BID 08/06/20 09/09/20 History Exam Airway Mallampati Class: II TM Dist: >3cm Neck ROM: Full Loose/Missing/Broken Teeth: No Heart: [id number] Lungs: cta b/l Assessment and Plan Assessment Anesthesia Assessment: Anesthesia Plan Discussed, PAT Visit and Chart Reviewed Final Anesthetic Review NPO: Yes ASA Class: II Final Preanesthetic Review: No Changes in Pt Med Stat, Meds/Allgs Chart Reviewed, Consent Obtained/Reviewed and Anes Risks/Benef Reviewed Patient Risk: Low Procedure Risk: Low Assessment/Block/Sedation in SS: Assess/Block/Sedation-SS Anesthetic Plan Anesthetic Plan: MAC: Disposition: Standard PACU
--- NOTE | 2020-09-15 06:00 | XR_ITS ---
EXAMINATION: XR ABDOMEN KUB CLINICAL INDICATION: Left kidney stone COMPARISON: TECHNIQUE: AP view of the abdomen. FINDINGS: Previously noted bilateral ureteric stents of been removed. The renal stone burden in the left kidney has significantly decreased from the prior study with subtle residual submillimeter calcification overlying the left lower pole collecting system. I do not appreciate any suspicious calcifications along the expected course the ureters. Degenerative changes in the bilateral sacroiliac joints. Surgical clips in the right upper quadrant likely from prior cholecystectomy. XR/XR KUB IMPRESSION: Interval removal of the bilateral ureteric stents. Decreased left renal stone burden from the prior study
[2020-09-15 07:19] VITALS: BP 147/89; PULSE 78; RESP 18; TEMP 36.6; O2SAT 98
[2020-09-15 07:20] LABS: UPreg QC Valid YES; Urine Pregnancy NEGATIVE (NEGATIVE)
[2020-09-15] MEDS: Lactated Ringers 1,000 ML 100 ML IVCONT (07:37)
--- NOTE | 2020-09-15 07:40 | MHC.SHP ---
Pre-Procedural Eval Section B Chief Complaint: calculus of kidney Details of Present Illness: Left residual fragments, left ESWL Relevant Family History (Specify if Yes): No Relevant Social History: None Present Medications: see Short Stay Collaborative assessment Medical History: Significant History History of Previous Operations: Relevant previous surgery/procedure and date(s) Allergies: Allergies Allergy/AdvReac Type Severity Reaction Status Date / Time onion Allergy Hives Verified 09/09/20 10:34 oxycodone AdvReac Headache Verified 09/09/20 10:34 Review of Systems Sugical H&P ROS: Negative: Constitution, Cardiovascular, Respiratory, Neurological, Psychiatric, Hem-Onc, Allergic/Immunologic, Gastrointestinal, Genitourinary, Musculoskeletal, Integumentary and Eyes/Ears/Nose/Throat Exam Surgical H&P Exam: Normal: HEENT, Normal: Heart, Normal: Lungs, Normal: Extremities, Normal: Abdomen, Normal: Skin and Normal: Neurological Plan Diagnosis/Plan: Unchanged Patient has been examined and remains a candidate for the planned procedure - left ESWL
--- NOTE | 2020-09-15 07:57 | PM.OP ---
Brief Operative Note Date of Service: 09/15/20 Pre-op diagnosis: Left renal stones Post-op diagnosis: same Procedure: Left ESWL Surgeon: Сергей Gallagher MD Anesthesia: MAC Estimated blood loss (mL): 0 Pathology: none sent Condition: stable Disposition: same day
--- NOTE | 2020-09-15 08:19 | W.PM.OPN ---
Operative Note Operative Note Date of Service: 09/15/20 Narrative: PreOperative Diagnosis: left Renal stones Post Operative Diagnosis: left Renal stones Procedure: ESWL - left Surgeon: Dr Сергей Gallagher Anesthesia: mac/sedation Indications for procedure: They understand ESWL may be a staged procedure and subsequent intervention may be required based on imaging after ESWL. They also understand there is a risk of bleeding, infection, damage to adjacent organs. Procedure: After informed consent was verified the patient was brought to the operating room and placed in a supine position. Anesthesia was performed per protocol. Safety pause time-out was performed. Imaging was in the room and laterality confirmed. ESWL was performed. The 1st 500 shocks were performed at 60 hertz. These were performed with increasing power. Once maximum power was reached the rate was increased to 180 hertz. A total of 2500 shocks were given. Fluoroscopy showed stone disintegration. They tolerated procedure well and was transferred to the recovery area upon completion.
[2020-09-15 08:24] VITALS: BP 133/72; PULSE 75; RESP 14; TEMP 36.6; O2SAT 97
[2020-09-15 08:39] VITALS: BP 138/91; PULSE 80; RESP 18; O2SAT 98
--- NOTE | 2020-09-15 08:53 | HO.POSTANES ---
Post Anesthesia Evaluation Post Anesthesia Evaluation Vital Signs: Vital Signs Temp Pulse Resp BP Pulse Ox 09/15/20 08:39 97.9 F 80 18 138/91 H 98 09/15/20 08:24 97.9 F 75 14 133/72 97 09/15/20 07:19 97.8 F 78 18 147/89 H 98 Anesthesia: Monitored Mental Status: Awake Pain Control: Satisfactory Nausea/Vomiting: None Hydration: Adequate Anesthesia-Related Issues: No Anes. Related Issues
== END 2020-09-15 08:57 | disposition home or self-care (01) ==
PROVIDERS: Nurse Practitioner; Urology; PCP Internal Medicine; Visit Provider Nuclear Medicine
PROC: (CPT 50590; principal; 2020-09-15 07:30)
DX: N20.0 Calculus of kidney (principal); Z88.5 Allergy status to narcotic agent
CPT/HCPCS: 50590; 74018; 81025; J2250; J3010

== ENCOUNTER 2020-12-15 16:14 | Outpatient (REF) | payer BC, SELFPAY ==
--- NOTE | ~2020-12-15 | US_ITS ---
EXAMINATION: US RETROPERITONEAL LIMITED (RENAL ONLY) CLINICAL INFORMATION: Calculus of kidney. COMPARISON: KUB 09/15/2020 and 08/16/2020. CT abdomen and pelvis 08/06/2020. TECHNIQUE: Real-time imaging of the kidneys. FINDINGS: RIGHT KIDNEY: 12.6 x 4.2 x 5.6 cm (SAG x AP x TRV). The kidney is normal in size, contour, and echogenicity. Renal cortical thickness is normal. No calculi or focal parenchymal lesions. No hydronephrosis. LEFT KIDNEY: 12.9 x 5.3 x 5.0 cm (SAG x AP x TRV). The kidney is normal in size, contour, and echogenicity. Renal cortical thickness is normal. No focal parenchymal lesions or hydronephrosis. Several small hyperechoic nonobstructing calculi are identified. At the midpole there are 3 calculi which measure 4 x 3, 4 x 2.4 x 3 mm. At the lower pole there is a 3 mm nonobstructing calculus. Incidental note of echogenic liver parenchyma compatible with steatosis. US/US renal BI IMPRESSION: There are several nonobstructing left renal calculi, as described. There is an otherwise unremarkable appearance of the kidneys. Incidental note of echogenic liver parenchyma suggestive of steatosis..
== END 2020-12-15 16:15 | disposition home or self-care (01) ==
LOC: HO.US 16:14
PROVIDERS: PCP Internal Medicine; Visit Provider Urology
DX: N20.0 Calculus of kidney (principal)
CPT/HCPCS: 76775

== ENCOUNTER → 2020-12-17 10:13 | Outpatient (BNVA) | payer BC, SELFPAY | PROVIDERS: PCP Internal Medicine; Visit Provider Urology ==

== ENCOUNTER 2021-06-10 15:22 | Outpatient (REF) | payer BC, SELFPAY ==
--- NOTE | ~2021-06-10 | US_ITS ---
EXAMINATION: US RETROPERITONEAL LIMITED (RENAL ONLY) CLINICAL INFORMATION: Calculus of kidney. COMPARISON: Renal ultrasound 12/15/2020. KUB 09/15/2020 [address] 08/16/2020. CT abdomen and pelvis 08/06/2020. TECHNIQUE: Real-time imaging of the kidneys. FINDINGS: RIGHT KIDNEY: 12.6 x 4.5 x 3.8 cm (SAG x AP x TRV). The kidney is normal in size, contour, and echogenicity. Renal cortical thickness is normal. No calculi or focal parenchymal lesions. No hydronephrosis. LEFT KIDNEY: 13.8 x 5.4 x 5.0 cm (SAG x AP x TRV). The kidney is normal in size, contour, and echogenicity. Renal cortical thickness is normal. No focal parenchymal lesions or hydronephrosis. Multiple echogenic, shadowing calculi are seen in the left kidney the largest 1.5 cm in the left mid kidney. US/US renal BI IMPRESSION: Multiple echogenic, shadowing left renal calculi are seen, the largest 1.5 cm in diameter. No right renal calculi. No hydronephrosis bilaterally..
== END 2021-06-10 15:23 | disposition home or self-care (01) ==
LOC: HO.US 15:22
PROVIDERS: PCP Internal Medicine; Visit Provider Urology
DX: N20.0 Calculus of kidney (principal)
CPT/HCPCS: 76775